=== PATIENT | female | born 1950 | race Two or more races ===

== ENCOUNTER 2021-06-25 11:31 | Inpatient (IN) | payer SELFPAY ==
[~2021-06-25] VITALS: Ht 160 cm; Wt 109.8 kg
--- NOTE | 2021-06-25 11:51 | NUR ---
kim59, from home, slipped and fall from her bed, no loc. NO C/O PAIN AT THIS TIME. NO S/O ANY ACUTE DISTRESS NOTED. AOX4. ABLE TO MAKE NEEDS KNOWN. Kept comfortable in bed. safety measures in place
[2021-06-25] MEDS ORDERED: IV NS 0.9% 1,000 ML BAG IV ONE (12:00)
[2021-06-25 12:44] LABS: BASOPHILS % (AUTO) 0.2 % (0.0-2.0); EOSINOPHILS % (AUTO) 0.5 % (0.0-6.0); HEMATOCRIT 33 % (33-45); HEMOGLOBIN 10.7 g/dL (11.5-14.8); LYMPHOCYTES # (AUTO) 1.2 K/uL (0.8-4.8); LYMPHOCYTES % (AUTO) 12.4 % (20.0-44.0); MEAN CORPUSCULAR HGB CONC 33 g/dl (31.0-36.0); MEAN CORPUSCULAR VOLUME 85 fL (82-100); MONOCYTES # (AUTO) 0.7 K/uL (0.1-1.30); MONOCYTES % (AUTO) 7.6 % (2.0-12.0); NEUTROPHILS # (AUTO) 7.5 K/uL (1.8-8.9); NEUTROPHILS % (AUTO) 79.3 % (43.0-81.0); PLATELET COUNT (AUTO) 141 K/uL (150-450); RED BLOOD CELL COUNT(AUTO) 3.82 MIL/uL (4.0-5.2); WHITE BLOOD COUNT (AUTO) 9.4 K/uL (4.3-11.0)
[2021-06-25 12:44] LABS: BILIRUBIN,URINE NEGATIVE (NEGATIVE); COLOR,URINE DARK YELLOW (YELLOW); LEUKOCYTE ESTERASE ,URINE TRACE (NEGATIVE); NITRITE, URINE POSITIVE (NEGATIVE); PROTEIN,URINE TRACE mg/dl (NEGATIVE); UGLUCOSE >=1000 mg/dL (NEGATIVE); UROBILINOGEN,URINE 0.2 EU/dL (0.2)
[2021-06-25 12:55] LABS: CALCIUM, SERUM 8.4 mg/dL (8.5-10.1); CREATININE 0.8 mg/dL (0.6-1.3); POTASSIUM 4.3 mmol/L (3.5-5.1)
[2021-06-25 13:01] LABS: ALBUMIN 2.8 g/dL (3.4-5.0); BILIRUBIN,DIRECT 0.5 mg/dL (0.0-0.2); BILIRUBIN,TOTAL 1.3 mg/dL (0.2-1.0); TOTAL PROTEIN, SERUM 7.8 g/dL (6.4-8.2)
[2021-06-25 13:26] LABS: BACTERIA,URINE Many /HPF (None Seen); SQUAMOUS EPITHELIAL CELL,UR Moderate /HPF (None Seen); YEAST,URINE Few /HPF (None Seen)
[2021-06-25] MEDS ORDERED: CEFTRIAXONE 1GM BAG (ER ONLY) 50 ML IV ONE (13:28)
[2021-06-25] MEDS ORDERED: CEFTRIAXONE 1GM BAG (ER ONLY) 1 GM/50 ML PIGGYBACK IV ONE (13:30)
[2021-06-25] MEDS ORDERED: MAG HYDROX/AL HYDROX/SIMETH 30 ML UDC PO PRN (14:00)
[2021-06-25] MEDS ORDERED: ACETAMINOPHEN 325 MG TABLET PO PRN (14:00)
[2021-06-25] MEDS ORDERED: ONDANSETRON HCL/PF 4 MG/2 ML VIAL IVP PRN (14:00)
[2021-06-25] MEDS ORDERED: DEXTROSE 50%-WATER 50 ML DISP.SYRIN IV PRN (14:00)
[2021-06-25] MEDS ORDERED: Z GUARD REMEDY 2 OZ OINT TP PRN (14:00)
[2021-06-25] MEDS ORDERED: TELM40TA2 PO (14:19)
[2021-06-25] MEDS ORDERED: LEVO150T8 PO (14:19)
[2021-06-25] MEDS ORDERED: BLOOD PRESSURE (14:19)
[2021-06-25] MEDS ORDERED: INSU100I4 SQ (14:19)
--- NOTE | 2021-06-25 14:54 | NUR ---
covid-19 swab done and send to lab at this time
--- NOTE | 2021-06-25 15:13 | NUR ---
report called in to [facility] Llamas ON 3W. Pt pending transfer to room 326B
--- NOTE | 2021-06-25 15:46 | NUR ---
pt transported with acls protocol in place to 3w room 326 -B
[2021-06-25 16:00] VITALS: BP 138/55
--- NOTE | 2021-06-25 16:00 | NUR ---
MS GRIP NOTE PT TRANSPORTED VIA GURNEY TO UNIT AT THIS TIME. PT ADMITTED TO MS FROM ER UNDER .... FOR ADMITTING DX OF ACUTE WEAKNESS WITH SECONDARY DX OF UTI POA. A/O X4. PT IS MOZAMBICAN-SPEAKING. PT IS ON 2LPM O2 VIA NC TOLERATING WELL. NO SOB OR S/S OF RESPIRATORY DISTRESS NOTED. PT HAS NO C/O PAIN OR DISCOMFORT AT THIS TIME. IV ACCESS IN RIGHT HAND #20, INTACT AND PATENT. PT NOTED WITH LACERATIONS ON FACE AND BRUISES ON BILATERAL ARMS AND KNEES. PHOTOS TAKEN AND FILED IN CHART. ORIENTED PT TO STAFF, UNIT, AND ROOM. SAFETY PRECAUTIONS MAINTAINED. BED IN LOWEST LOCKED POSITION, HOB ELEVATED, SIDE RAILS UP X2. CALL LIGHT AND TABLE WITHIN REACH. WILL CONTINUE TO MONITOR.
[2021-06-25] MEDS: BLOOD SUGAR DIAGNOSTIC 1 EACH STRIP VI SCH ×2 (17:20→21:57)
[2021-06-25] MEDS: INSULIN REGULAR, HUMAN 100 UNIT/ML 3 ML VIAL SQ PRN (17:24)
--- NOTE | 2021-06-25 18:28 | NUR ---
MS RN CLOSING NOTE PT IS AWAKE IN BED. A/O X4. PT IS SAUDI ARABIAN-SPEAKING. PT IS ON 2LPM O2 VIA NC TOLERATING WELL. NO SOB OR S/S OF RESPIRATORY DISTRESS NOTED. PT HAS NO C/O PAIN OR DISCOMFORT AT THIS TIME. IV ACCESS IN RIGHT HAND #20, INTACT AND PATENT. ALL NEEDS HAVE BEEN MET. SAFETY PRECAUTIONS MAINTAINED AT ALL TIMES. BED IN LOWEST LOCKED POSITION, HOB ELEVATED, SIDE RAILS UP X2. CALL LIGHT AND TABLE WITHIN REACH. WILL ENDORSE TO ONCOMING NURSE FOR ARMANDO.
[2021-06-25] MEDS: ENOXAPARIN SODIUM 40 MG/0.4 ML DISP.SYRIN SQ SCH (18:36)
[2021-06-25] MEDS: IV NS 0.9% 1,000 ML IV PRN (18:51)
--- NOTE | 2021-06-25 19:30 | NUR ---
RN OPENING NOTE PATIENT IN BED, AWAKE, A/O X 4, PATIENT ABLE TO UNDERSTAND MALTESE, MAINLY UPPER SORBIAN SPEAKING. PATIENT IS ON 2 L O2 SUPPLEMENTATION, TOLERATING WELL NO SOB OBSERVED, BREATHING EVEN AND UNLABORED. PATIENT NOTED WITH LESION ON THE FACE. PATIENT HAS A R HAND 20 G SALINE LOCKED ONLY, PATIENT REFUSES TO HAVE IVF ON AT THIS TIME. ENCOURAGED PATIENT TO HYDRATE WELL PO. PATIENT COMPLAINING OF CONSTIPATION, WILL GIVE MED TO HELP WITH ELIMINATION. SAFETY MEASURES IN PLACE: BED LOCKED AND IN LOWEST POSITION, CALL LIGHT WITHIN REACH, SIDE RAILS UP, BED ALARM ON. WILL MONITOR PATIENT CLOSELY.
[2021-06-25] MEDS: MAGNESIUM HYDROXIDE 30 ML UDC PO PRN (19:54)
[2021-06-25 20:00] VITALS: BP 139/59
[2021-06-25] MEDS: *INSULIN REGULAR(HUMULIN R)HUM 100 UNIT/ML VIAL SQ PRN (21:50)
--- NOTE | 2021-06-25 21:54 | NUR ---
RN NOTE PATIENT GIVEN 8 UNITS OF REGULAR INSULIN FOR 347 MG/DL BS. WILL MONITOR FOR HYPOGLYCEMIA.
[2021-06-26] MEDS: ZOLPIDEM TARTRATE 5 MG TABLET PO PRN (01:32)
[2021-06-26] MEDS: BLOOD SUGAR DIAGNOSTIC 1 EACH STRIP VI SCH ×4 (06:34→22:52)
[2021-06-26] MEDS: INSULIN REGULAR, HUMAN 100 UNIT/ML 3 ML VIAL SQ PRN ×3 (06:36→17:23)
--- NOTE | 2021-06-26 07:12 | NUR ---
RN CLOSING NOTE PATIENT IN BED, ON 2 L, BREATHING EVEN AND UNLABORED. IV ACCESS PATENT AND INTACT. PATIENT'S BS 306, 12 UNITS GIVEN FOR COVERAGE. PROVIDED SNACKS AND JUICE. NO SIGNIFICANT CHANGES IN PATIENT'S CONDITION. SAFETY MEASURES MAINTAINED. ALL NEEDS MET AND ATTENDED, ALL ORDERS CARRIED OUT. WILL ENDORSE TO DAY SHIFT NURSE FOR ARMANDO.
[2021-06-26 07:22] LABS: BASOPHILS % (AUTO) 0.4 % (0.0-2.0); EOSINOPHILS % (AUTO) 1.2 % (0.0-6.0); HEMATOCRIT 30 % (33-45); HEMOGLOBIN 9.7 g/dL (11.5-14.8); LYMPHOCYTES # (AUTO) 1.5 K/uL (0.8-4.8); LYMPHOCYTES % (AUTO) 23.9 % (20.0-44.0); MEAN CORPUSCULAR HGB CONC 32 g/dl (31.0-36.0); MEAN CORPUSCULAR VOLUME 86 fL (82-100); MONOCYTES # (AUTO) 0.7 K/uL (0.1-1.30); MONOCYTES % (AUTO) 11.8 % (2.0-12.0); NEUTROPHILS # (AUTO) 3.8 K/uL (1.8-8.9); NEUTROPHILS % (AUTO) 62.7 % (43.0-81.0); PLATELET COUNT (AUTO) 128 K/uL (150-450); RED BLOOD CELL COUNT(AUTO) 3.52 MIL/uL (4.0-5.2); WHITE BLOOD COUNT (AUTO) 6.1 K/uL (4.3-11.0)
--- NOTE | 2021-06-26 07:22 | NUR ---
MS RN OPENING NOTE RECEIVED PATIENT IN BED, ASLEEP BUT EASILY AROUSABLE. PATIENT IS A/O X 4. PATIENT IS ON 2 L O2 SUPPLEMENTATION, TOLERATING WELL NO SOB OBSERVED, BREATHING EVEN AND UNLABORED. PATIENT NOTED WITH LESION ON THE FACE. PATIENT HAVE RIGHT HAND IV ACCESS G 20 BUT REFUSING IV ACCESS AT THIS TIME. ENCOURAGED PATIENT TO HYDRATE WELL PO. SAFETY MEASURES IN PLACE WITH BED LOCKED AND IN LOWEST POSITION, CALL LIGHT WITHIN REACH, SIDE RAILS UP, CALL LIGHT AND TABLE WITHIN REACH. WILL CLOSELY MONITOR PATIENT.
[2021-06-26 07:51] LABS: CREATININE 0.8 mg/dL (0.6-1.3); PHOSPHORUS 2.1 mg/dL (2.5-4.9); POTASSIUM 4.1 mmol/L (3.5-5.1)
[2021-06-26 07:57] LABS: THYROID STIMULATING HORMONE 14.267 uIU/mL (0.358-3.74)
[2021-06-26 08:08] LABS: MAGNESIUM 2.5 mg/dL (1.8-2.4)
[2021-06-26 08:14] VITALS: BP 121/48
[2021-06-26] MEDS: LEVOTHYROXINE SODIUM 75 MCG TABLET PO SCH (10:06)
[2021-06-26] MEDS: PANTOPRAZOLE 40 MG TABLET.DR PO SCH (10:06)
[2021-06-26] MEDS: CEFTRIAXONE 1 G in IV D5W 50 ML IV SCH (10:08)
[2021-06-26] MEDS ORDERED: K PHOS NEUTRAL 250 MG TABLET PO ONE (10:30)
[2021-06-26] MEDS: LOSARTAN POTASSIUM 50 MG TABLET PO SCH (12:22)
[2021-06-26 16:20] VITALS: BP 109/54
[2021-06-26] MEDS: ENOXAPARIN SODIUM 40 MG/0.4 ML DISP.SYRIN SQ SCH (17:24)
--- NOTE | 2021-06-26 19:07 | NUR ---
MS RN CLOSING NOTE PATIENT IN BED, ASLEEP BUT EASILY AROUSABLE. PATIENT IS A/O X 4. PATIENT IS ON 2 L O2 SUPPLEMENTATION, TOLERATING WELL NO SOB OBSERVED, BREATHING EVEN AND UNLABORED. PATIENT NOTED WITH LESION ON THE FACE. PATIENT HAVE RIGHT HAND IV ACCESS G 20 BUT REFUSING IV ACCESS AT THIS TIME. ENCOURAGED PATIENT TO HYDRATE WELL PO. SAFETY MEASURES IN PLACE WITH BED LOCKED AND IN LOWEST POSITION, CALL LIGHT WITHIN REACH, SIDE RAILS UP, CALL LIGHT AND TABLE WITHIN REACH. WILL ENDORSE PATIENT FOR CONTINUITY OF CARE.
--- NOTE | 2021-06-26 19:40 | NUR ---
MS RN OPENING NOTES PATIENT WAS LAST SEEN SLEEPING IN BED. PATIENT IS A/O X 4. PATIENT IS ON 2 LPM OF O2 VIA NC WITH NO RESPIRATORY DISTRESS NOTED. IV ACCESS NOTED ON RIGHT HAND GAUGE#20, BUT REFUSING IV FLUIDS TO BE RUNNING AT THIS TIME. PATIENT'S IN NO ACUTE DISTRESS AT THIS TIME. SAFETY MEASURES IN PLACE: BED LOCKED, BED ALARM ON, SIDE RAILS UPX3, AND CALL LIGHT WITHIN REACH OF THE PATIENT. WILL CONTINUE TO MONITOR THE PATIENT.
[2021-06-26 20:00] VITALS: BP 145/60
[2021-06-26] MEDS: INSULIN GLARGINE, 100 UNIT/ML CARTRIDGE SQ SCH (22:50)
--- NOTE | 2021-06-26 23:00 | NUR ---
MS RN NOTES PATIENT'S BLOOD SUGAR AT BEDTIME WAS 280 MG/DL THEN ORDERED REGULAR INSULIN (6 UNITS) WAS GIVEN. WILL CONTINUE TO MONITOR THE PATIENT.
[2021-06-26] MEDS: *INSULIN REGULAR(HUMULIN R)HUM 100 UNIT/ML VIAL SQ PRN (23:06)
[2021-06-27] MEDS: IV NS 0.9% 1,000 ML IV PRN (05:44)
[2021-06-27] MEDS: INSULIN REGULAR, HUMAN 100 UNIT/ML 3 ML VIAL SQ PRN ×3 (06:08→17:39)
--- NOTE | 2021-06-27 06:30 | NUR ---
MS RN CLOSING NOTES PATIENT WAS LAST SEEN SLEEPING IN BED. PATIENT IS A/O X 4. PATIENT IS ON 2 LPM OF O2 VIA NC WITH NO RESPIRATORY DISTRESS NOTED. IV ACCESS NOTED ON RIGHT HAND GAUGE#20. PATIENT'S IN NO ACUTE DISTRESS AT THIS TIME. SAFETY MEASURES IN PLACE: BED LOCKED, BED ALARM ON, SIDE RAILS UPX3, AND CALL LIGHT WITHIN REACH OF THE PATIENT. WILL ENDORSE CARE TO THE DAY SHIFT NURSE.
[2021-06-27] MEDS: BLOOD SUGAR DIAGNOSTIC 1 EACH STRIP VI SCH ×4 (06:53→22:23)
--- NOTE | 2021-06-27 07:40 | NUR ---
RN OPENING NOTES Patient seen comfortably lying in bed, no apparent distress noted, no SOB, respirations even and unlabored, denies any pain or discomfort at this time. Safety precautions in place, brakes locked, side rails up X 2, call light left within reach, will monitor closely for any changes.
[2021-06-27 08:00] VITALS: BP 125/56
[2021-06-27] MEDS: LEVOTHYROXINE SODIUM 75 MCG TABLET PO SCH (09:23)
[2021-06-27] MEDS: PANTOPRAZOLE 40 MG TABLET.DR PO SCH (09:23)
[2021-06-27] MEDS: LOSARTAN POTASSIUM 50 MG TABLET PO SCH (09:24)
[2021-06-27] MEDS: CEFTRIAXONE 1 G in IV D5W 50 ML IV SCH (09:24)
--- NOTE | 2021-06-27 10:02 | NUR ---
SS consult received and SW will follow up at a later time.
--- NOTE | 2021-06-27 11:22 | NUR ---
SS consult: SS Consult requested for possible self-neglect. The pt. is a 71-year old female who is on the med surg seeking medical attention for ground level fall. SW met with pt. at bedside. The pt. is A&O X 4 and appears unkempt. The pt. has a bruise on her right eye and small scratches on her face. Pt. states she consumed pork and has an allergic reaction and has been scratching. The pt. is heavy set and makes appropriate eye contact. The pt.s mood is euthymic. Pt. stated she was walking to her room from kitchen without front wheel walker and does not know how she fell. Pt. states she hit her head and lower extremities due to fall and now has bruising. Pt. stated she currently has pain resulting from fall. The pt. states she lives at home [[address] [facility] [address]; [phone]] with her nephew, Alverto Knox. SW assessed pt.s support system. Pt. stated that she has a caregiver, Becky Stapleton 7 days a week, 4hrs. daily. Patient is unable to provide contact for any responsible green party at this time. Pt. stated that Becky assists pt. with most of her ADLs including, showering, cleaning the home, groceries & cooking. Pt. states she is ambulatory with front wheel walker and/ or uses electric wheelchair for longer distances. Pt. states she receives food stamps and SSI. NICOLE explored pt.s mental health. Pt. denies SI/HI and denies hallucinations. Pt. states she experiences Anxiety and is not on any psychotropic medications. Plan: Pt. stated she would like to return home [[address] [facility] [address]; [phone]] with caregiver, Becky when ready for discharge. SW explained alternate placement options and pt. refused stating she would be more comfortable at home. SW provided pt. with [facility] and pt. accepted them. SW will follow up with APS report for self-neglect. ABUSE PREVENTION: ELDER ABUSE HOTLINE (09/04) ADULT PROTECTIVE SERVICES [facility] AREA ON AGING (HOTLINE) ADULT DAY HEALTH CARE CARE CENTERS: Private pay or Medi-etelvina funded adult day care [facility] , [facility] , [facility] , [facility] , [facility] Adult Day Health Care , [facility] Adult [facility] Center , [place] [facility] , [facility] , [place] ALZHEIMERS DISEASE/DEMENTIA: Alzheimers Association Helpline [facility] www.alz.org/[facility] Department of Aging www.lacity.org Family Caregiver Captiva www.caregiver.org [place] Caregiver Resources Center/Family Support www.[facility].org CANCER RESOURCES: Canadian Cancer Society www.cancer.org Cancer Support Community www.CancerSupportVvsb.org: CancerCare www.cancercare.org [facility] Cancer Support Center www.[facility].org COMMUNITY HEALTH ASSOCIATIONS: AARP www.aarp.org ALS Association (ask for Arlet) www.als.org Canadian Diabetes Association www.diabetes.org Canadian Heart Association www.heart.org Canadian Lung Association www.lungusa.org Canadian Parkinson Disease Association www.apdaparkinson.org Canadian Buckeye , www.redcross.org Arthritis Foundation www.arthritis.org Crohns & Colitis Foundation of Canadian www.ccfa.org/chapters/uri National Multiple Sclerosis Society www.nationalmssociety.org Myasthenia Gravis Foundation www.myasthenia-ca.org National Stroke Association www.stroke.org CONSERVATORSHIP & GUARDIANSHIP: AARP Teresa Frazier Legal Services Center for Health Care Rights Eldercare Information and Referral Pocket Marker [facility]: [facility] Referral Service [facility] Legal Services Office of the Public Guardian Martin EYESIGHT DISORDER RESOURCES: Canadian Macular Degeneration Foundation [facility] www.[facility] hospital[facility].org GRIEF AND BEREAVEMENT RESOURCES: The [place] , [facility] THE IRVONA Connection , [facility] Be[facility] Center , [place] HEARING DISORDER RESOURCES: [place] Telephone Access Program Deaf and Disabled Telecommunications Program www.ddtp.cpuc.ca.gov HearRx Hearing Centers ([place]) Better Hearing Systems , [place] GLAD ([facility] Agency on Deafness) V/ TTY; Special Systems Technician , [facility] Hearing [facility] -low income hearing aid assistance www.NYX Interactivehearingfoundation.org [place] Hearing Care , Chris HELP AT HOME CAREGIVER SUPPORT: In Home Support Services (Must have Medi-Etelvina to be eligible) *Ask for a list of agencies that provide services to assist with care in the home. Local Senior Centers also have listings of care providers. HOME SAFETY MODIFICATIONS AND EQUIPMENT: Senior centers have additional referrals. [place] theRightAPI and Affinity Solutions Dept. Handyworker Program (low income) or Visit http://hcidla.[facility].org/ovv-qjzqcn-wz for more information National Seating and Mobility and/or ; Forever Active www.forevernCino.Smava Stay Home Safe www.Stayhomesafe.com LIFE ALERT RESPONSE SYSTEM: [employer] Corporation Services 757-962-2815 www. TrackR Life Alert 997-082-1371 www.eCardio Life Station 734-228-7365 www.Genisphere Incation.Smava Safe Return 192-293-4704 www.alz.or/safereturn Cell Phones for Seniors www.iROKO Partners MEALS AND FOOD PROGRAMS: [place] Meals on Wheels [phone] [place] Meals on Wheels [phone] [facility] [phone] [place] to the Homebound [phone] [place] to the Homebound [phone] [facility] to the Homebound [phone] [facility] to the Homebound [phone] John Son [phone] Perri Kinney [place] [phone] ONE Generation [phone] [facility] [phone] [facility] Center[facility] [phone] Meals on Wheels [phone] For all ages: $6.85/ meal w side. Delivered M-F from 10 am-1pm. Application and payment is done over the phone. Frozen meals available for weekends. Emergency Food Coalition [phone] [facility] Hydraulic Press Servicer [phone] [facility] [phone] Renetta [facility] Outreach- Brown bag lunches [phone] [facility] [phone] MEAL/GROCERY DELIVERY PROGRAMS: [facility] Gourmet Meals [phone]- [facility] [phone]- [facility] Magic Kitchen [phone] Moms Meals [phone] (ask [place]ett for Discount Select grocery stores may provide delivery. MEDICAL INSURANCE SUPPORT SERVICES: Center for Health Care Rights [phone] Health Insurance Counseling/Advocacy Programs (HICAP)-Must have Medicare. Offers counseling for Medi-Etelvina eligibility [phone] [facility] Hydraulic Press Servicer [phone] www.[facility].ca.gov Medicare 011-873-9803 www.socialsecurity.org Social Security [phone] SENIOR ACTIVITY PROGRAMS: *Contact a local senior center, adult school, recreation facility or community college for education, fitness, recreation, and social programs. Aquatic Therapy and Adapted Exercise programs through [facility] [phone] [facility] [phone] www.[facility]/encore H2U- Senior Friends [phone] [place] Senior Programs [phone] www.oasisnet.org Suddenly 65 www..com SENIOR CENTERS: [facility] Center [phone] [facility] [phone] [facility] [phone] [facility] [place] [phone] [facility] [phone] [facility] [phone] [facility] [phone] [facility] [phone] One Generation, [facility] [phone] [facility] [phone] [facility] [phone] [facility] [phone] [facility] [phone] TRANSPORTATION: Local [facility] may have applications for transportation programs and additional resources. ACCESS Services [phone] Transportation for seniors and disabled persons 7 days a week requiring 254 hr. advance reservation. Must apply and register for program geoffrey eligible. nodila [phone] or [phone] Transportation for seniors and persons with ADA card/metro disabled card in the [facility]. M-F only. Must register for services. ONE GENERATION [phone] Serves 65 years + in conjunction with slinkset program. Must be registered with both programs. A to B Transport [phone] Provides wheelchair/gurney van service. Adult Medical Transport [phone] Accepts [facility] with prior authorization. Care Van [phone] Provides wheelchair Transport. [facility] Wide Transportation [phone] Provides gurney service Gentle [facility] [phone] Gurney Transport. [facility] Town Transportation [phone] wheelchair & gurney transport [facility] Transportation [phone] wheelchair & gurney transport [place] Non-Emergency Transport [phone] wheelchair & gurney transport [facility] Living [place] [phone] Short Term Transportation primarily for adults with disabilities on social security income. Nominal fee may apply and a reservation is required. Integra Health Management Cab [phone] or [phone] Getable [facility] CenterPower Liens [phone] [place] [address] Referral Services -[phone] For additional programs & services VETERANS RESOURCES: Submissions for Aid and Attendance should be done directly to Federal VA office locatd at : [address] [facility] [phone] National Caregiver Support Line [phone] Etelvina Hernandez Veterans Services Field Office [phone] [place] Department of Affairs [phone] Pension Information [phone]
[2021-06-27] MEDS: MAGNESIUM HYDROXIDE 30 ML UDC PO PRN ×2 (11:52→20:14)
[2021-06-27] MEDS: INSULIN ASPART/LISPRO 100 UNIT/ML CARTRIDGE SQ SCH ×2 (12:14→17:39)
[2021-06-27 16:00] VITALS: BP 107/60
[2021-06-27] MEDS: ENOXAPARIN SODIUM 40 MG/0.4 ML DISP.SYRIN SQ SCH (17:57)
--- NOTE | 2021-06-27 18:32 | NUR ---
RN CLOSING NOTES Patient lying in bed, AO X 4, can follow commands, able to make needs known, no apparent distress noted, no SOB, respirations even and unlabored, denies any pain or discomfort. Skin warm to touch, no pallor or cyanosis noted. Insulin given per sliding scale, tolerating well, no hypo/hyperglycemia noted during shift. All needs attended, due medications given per MD order, kept clean and dry, safety precautions in place, brakes locked, side rails up X 2, call light left within reach, will endorse to next shift for continuity of care.
--- NOTE | 2021-06-27 19:39 | NUR ---
MS RN OPENING NOTES RECEIVED PT IN CHAIR AT BEDSIDE, WATCHING TV. AOx4. GEORGIAN SPEAKING BUT UNDERSTANDS A LITTLE GREEK. ON 2L/MIN VIA NASAL CANNULA AND TOLERATING WELL. NO SOB NOTED. NO S/SX OF RESPIRATORY DISTRESS NOTED. IV ACCESS IN R HAND #20 RUNNING NS @75 ML/HR. SAFETY PRECAUTIONS IN PLACE: BED IN LOWEST, LOCKED POSITION, SIDERAILS UPx2, AND BRAKES ON. CALL LIGHT AND TABLE WITHIN REACH. WILL CONTINUE TO MONITOR.
[2021-06-27 20:00] VITALS: BP 109/38
[2021-06-27] MEDS: MORPHINE SULFATE INJ 2 MG/ML DISP.SYRIN IV PRN (20:14)
--- NOTE | 2021-06-27 20:15 | NUR ---
ADMINISTERED MORPHINE PER MD ORDER FOR PAIN. VITAL SIGNS WNL. WILL CONTINUE TO MONITOR.
[2021-06-27] MEDS: ZOLPIDEM TARTRATE 5 MG TABLET PO PRN (21:30)
[2021-06-27] MEDS: INSULIN GLARGINE, 100 UNIT/ML CARTRIDGE SQ SCH (21:32)
[2021-06-27] MEDS: *INSULIN REGULAR(HUMULIN R)HUM 100 UNIT/ML VIAL SQ PRN (21:34)
[2021-06-28] MEDS: MORPHINE SULFATE INJ 2 MG/ML DISP.SYRIN IV PRN (05:42)
--- NOTE | 2021-06-28 05:42 | NUR ---
ADMINISTERED MORPHINE FOR PAIN PER MD ORDER. VITAL SIGNS WNL. WILL CONTINUE TO MONITOR.
[2021-06-28] MEDS: BLOOD SUGAR DIAGNOSTIC 1 EACH STRIP VI SCH ×4 (06:21→21:42)
[2021-06-28] MEDS: INSULIN REGULAR, HUMAN 100 UNIT/ML 3 ML VIAL SQ PRN ×3 (06:26→17:37)
--- NOTE | 2021-06-28 06:38 | NUR ---
MS RN CLOSING NOTES PT SITTING IN HIGH-FOWLERS IN BED, AWAKE. AOx3-4. KUWAITI SPEAKING BUT UNDERSTANDS A LITTLE BELARUSIAN. ON 2L/MIN VIA NASAL CANNULA AND TOLERATING WELL. NO SOB NOTED. NO S/SX OF RESPIRATORY DISTRESS NOTED. IV ACCESS IN R HAND #20 RUNNING NS @75 ML/HR. ALL NEEDS MET. PT KEPT CLEAN AND DRY. TREATED PAIN THROUGHOUT SHIFT. SAFETY PRECAUTIONS IN PLACE: BED IN LOWEST, LOCKED POSITION, SIDERAILS UPx2, AND BRAKES ON. CALL LIGHT AND TABLE WITHIN REACH. WILL ENDORSE TO ONCOMING SHIFT.
--- NOTE | 2021-06-28 07:30 | NUR ---
received pt. this am,alert and oriented x3-4.danish speaking.pleasant,cooperative,vs stable.
[2021-06-28 08:00] VITALS: BP 112/56
[2021-06-28] MEDS: LOSARTAN POTASSIUM 50 MG TABLET PO SCH (09:00)
[2021-06-28] MEDS: CEFTRIAXONE 1 G in IV D5W 50 ML IV SCH (10:00)
[2021-06-28] MEDS: PANTOPRAZOLE 40 MG TABLET.DR PO SCH (10:19)
[2021-06-28] MEDS: HYDROCODONE/APAP 5/325MG TABLET PO PRN ×2 (10:19→19:49)
[2021-06-28] MEDS: LEVOTHYROXINE SODIUM 75 MCG TABLET PO SCH (10:19)
--- NOTE | 2021-06-28 10:19 | NUR ---
given norco for headache.
[2021-06-28] MEDS: INSULIN ASPART/LISPRO 100 UNIT/ML CARTRIDGE SQ SCH ×2 (10:29→17:38)
--- NOTE | 2021-06-28 11:51 | NUR ---
SS Note: SW discussed pt.'s DC plan with Alejandro Jones DNP. SW niotified Alejandro that pt. is refusing SNF placement and stated that she would like to return home with caregiver. However, SW unable to verify caregiver due to no contact provided. Patient was seen by PT and recommending ARU. SW spoke to pt. and she is agreeable to ARU before DC to home. Pt. stated her phone is being charged and will provide SW with caregiver phone number. Notes SS will follow up. SW notified charge nurseMay that pt. is agreeable to ARU.
[2021-06-28] MEDS: NITROFURANTOIN/NITROFURAN MONOHYDRATE 100 MG CAPSULE PO SCH ×2 (13:24→20:18)
[2021-06-28 16:00] VITALS: BP 103/55
[2021-06-28] MEDS: ENOXAPARIN SODIUM 40 MG/0.4 ML DISP.SYRIN SQ SCH (17:38)
--- NOTE | 2021-06-28 18:00 | NUR ---
no change in status.
--- NOTE | 2021-06-28 19:27 | NUR ---
MS RN OPENING NOTES RECEIVED PT IN BED, WATCHING TV. AOx4. LIBYAN SPEAKING BUT UNDERSTANDS SOME PAKISTANI. ON 2L/MIN VIA NASAL CANNULA AND TOLERATING WELL. NO SOB NOTED. NO S/SX OF RESPIRATORY DISTRESS NOTED. IV ACCESS IN R HAND #20. IV IS INTACT, PATENT, AND FLUSHING WELL. SAFETY PRECAUTIONS IN PLACE: BED IN LOWEST, LOCKED POSITION, SIDERAILS UPx2, AND BRAKES ON. CALL LIGHT AND TABLE WITHIN REACH. WILL CONTINUE TO MONITOR.
--- NOTE | 2021-06-28 19:49 | NUR ---
ADMINISTERED NORCO PER MD ORDER FOR PAIN. VITAL SIGNS WNL. WILL CONTINUE TO MONITOR.
[2021-06-28 20:36] VITALS: BP 107/52
[2021-06-28] MEDS: *INSULIN REGULAR(HUMULIN R)HUM 100 UNIT/ML VIAL SQ PRN (21:48)
[2021-06-28] MEDS ORDERED: INSULIN GLARGINE, 100 UNIT/ML CARTRIDGE SQ SCH (22:00)
[2021-06-28] MEDS: ZOLPIDEM TARTRATE 5 MG TABLET PO PRN (22:03)
[2021-06-29] MEDS: BLOOD SUGAR DIAGNOSTIC 1 EACH STRIP VI SCH ×2 (05:41→12:12)
[2021-06-29] MEDS: INSULIN REGULAR, HUMAN 100 UNIT/ML 3 ML VIAL SQ PRN ×2 (06:11→12:15)
--- NOTE | 2021-06-29 07:04 | NUR ---
MS RN CLOSING NOTES PT IN BED, RESTING WITH EYES CLOSED. AOx4. POLISH SPEAKING BUT UNDERSTANDS SOME ARMENIAN. ON 2L/MIN VIA NASAL CANNULA AND TOLERATING WELL. NO SOB NOTED. NO S/SX OF RESPIRATORY DISTRESS NOTED. IV ACCESS IN R HAND #20. IV IS INTACT, PATENT, AND FLUSHING WELL. ALL NEEDS MET. PT KEPT CLEAN AND DRY. TREATED PAIN THROUGHOUT SHIFT. SAFETY PRECAUTIONS IN PLACE: BED IN LOWEST, LOCKED POSITION, SIDERAILS UPx2, AND BRAKES ON. CALL LIGHT AND TABLE WITHIN REACH. WILL ENDORSE TO ONCOMING SHIFT.
--- NOTE | 2021-06-29 07:30 | NUR ---
MS RN OPENING NOTES RECEIVED PATIENT ON BED, AWAKE AND A/O X4. SOUTH AFRICAN SPEAKING BUT UNDERSTANDS TONGAN. ON 02 AT 2LPM VIA NASAL CANNULA, TOLERATING WELL. NO SOB NOTED. NOT IN DISTRESS. WITH NO COMPLAINTS OF PAIN OR DISCOMFORT AT THIS TIME. WITH IV ACCESS AT RIGHT FOREARM G22, SALINE LOCKED, PATENT AND INTACT. SAFETY MEASURES IN PLACE. CALL LIGHT WITHIN REACH. BED ON LOWEST AND LOCKED POSITION, SIDE RAILS UP X2. WILL CONTINUE TO MONITOR.
[2021-06-29 08:00] VITALS: BP 112/50
[2021-06-29] MEDS: LEVOTHYROXINE SODIUM 75 MCG TABLET PO SCH (08:57)
[2021-06-29] MEDS: NITROFURANTOIN/NITROFURAN MONOHYDRATE 100 MG CAPSULE PO SCH (08:57)
[2021-06-29] MEDS: PANTOPRAZOLE 40 MG TABLET.DR PO SCH (08:57)
[2021-06-29 08:58] VITALS: BP 112/50
[2021-06-29] MEDS: LOSARTAN POTASSIUM 50 MG TABLET PO SCH (08:58)
[2021-06-29] MEDS: INSULIN ASPART/LISPRO 100 UNIT/ML CARTRIDGE SQ SCH (09:10)
--- NOTE | 2021-06-29 12:15 | NUR ---
MS DIRECTOR PHYSICAL NOTES PATIENT IS FOR DISCHARGE PER DOCTOR'S ORDER. FOR DISCHARGE TO HOME. DISCHARGE INSTRUCTION AND EDUCATION PROVIDED TO PATIENT AND EXPLAINED MEDICATIONS AND PRESCRIPTIONS. PATIENT VERBALIZED UNDERSTANDING. DISCHARGE FORM AND BELONGINGS LIST FORM SIGNED BY PATIENT. ALL BELONGINGS ACCOUNTED FOR. NAME WRIST BAND AND IV LINE REMOVED. PATIENT WAS ACCOMPANIED TO THE LOBBY VIA WHEELCHAIR. PATIENT WAS PICKED UP BY HER SISTER AND LEFT IN STABLE CONDITION VIA PRIVATE CAR. CHARGE NURSE AND MD ARE AWARE OF THE DISCHARGE.
== END 2021-06-29 12:15 | disposition home or self-care (01) | DRG 690 ==
LOC: ER 11:33 → TELE 15:23 → MED 19:52
PROVIDERS: ADMIT Nurse Practitioner Acute Care; ATTEND Nurse Practitioner Acute Care
DX: N39.0 Urinary tract infection, site not specified (principal); E87.1 Hypo-osmolality and hyponatremia; Z68.41 Body mass index [BMI] 40.0-44.9, adult; E44.0 Moderate protein-calorie malnutrition; E11.65 Type 2 diabetes mellitus with hyperglycemia; E03.9 Hypothyroidism, unspecified; F41.9 Anxiety disorder, unspecified; Z20.822 Contact with and (suspected) exposure to COVID-19; B96.20 Unspecified Escherichia coli [E. coli] as the cause of diseases classified elsewhere; E66.01 Morbid (severe) obesity due to excess calories; E83.39 Other disorders of phosphorus metabolism; I10 Essential (primary) hypertension; W06.XXXA Fall from bed, initial encounter; R53.1 Weakness; Z79.4 Long term (current) use of insulin; S80.12XA Contusion of left lower leg, initial encounter; S80.11XA Contusion of right lower leg, initial encounter; Y93.9 Activity, unspecified; Y92.003 Bedroom of unspecified non-institutional (private) residence as the place of occurrence of the external cause
CPT/HCPCS: 36415; 71045-TC; 73564-TC; 80048-TC; 80061-TC; 80076-TC; 81001; 82962-TC; 83605-TC; 83735-TC; 84100-TC; 84443-TC; 84484-TC; 85025-TC; 85730-TC; 87040-TC; 87081-TC; 87086-TC; 87186-TC; 97112-TC; 97116-TC; 97530-TC; G0378; J0696; J1650; J1815; J2270; J7030; J7060